=== PATIENT | female | born 1995 | race Caucasian/White ===

== ENCOUNTER 2018-10-22 13:41 | Emergency (ER) | payer SELFPAY ==
[~2018-10-22] VITALS: Ht 167.6 cm; Wt 124.7 kg
--- OUTSIDE RECORDS SUMMARY | 2018-10-22 13:43 | XMS REPORT | Clinical Summary ---
Author Author [facility] Address Unknown Phone Unavailable Care Team Providers Care Delicatessen Department Manager Name Role Phone Asked, No Pcp PCP Unavailable Allergies Comments Active Allergy Reactions Severity Noted Date Ibuprofen 10/17/2017 Morphine 10/17/2017 Medications End Date Status Medication Sig Dispensed Refills Start Date 10/28/2017 cefdinir (OMNICEF) 300 MG Take 1 20 capsule 0 capsule capsule (300 8 mg total) by mouth 2 (two) times a day for 10 days. 01/22/2018 meloxicam (MOBIC) 15 mg Take 0.5 20 tablet 0 tablet tablets (7.5 8 mg total) by mouth daily as needed for mild pain or moderate pain for up to 30 days. Active Problems Problem Noted Date Acute cystitis with hematuria 10/17/2017 Encounters Care Team Description Date Type Specialty Felipe Lucio MD Nonintractable episodic headache, unspecified headache type (Primary Dx); Dehydration 12/22/2017 Emergency Emergency Medicine - 12/23/2017 after 10/21/2017 Social History Date Tobacco Use Types Packs/Day Years Used Never Smoker Alcohol Use Drinks/Week oz/Week Comments Yes occassionally Sex Assigned at Date Recorded Not on file Industry Job Start Date Occupation Not on file Not on file Not on file Travel End Travel History Travel Start No recent travel history available. Last Filed Vital Signs Time Taken Vital Sign Reading 12/23/2017 3:04 AM CDT Blood Pressure 108/53 12/23/2017 3:04 AM CDT Pulse 78 12/23/2017 3:04 AM CDT Temperature 36.7 C (98.1 F) 12/23/2017 3:04 AM CDT Respiratory Rate 16 12/23/2017 3:04 AM CDT Oxygen Saturation 98% - Inhaled Oxygen - Concentration 12/22/2017 10:54 PM CDT Weight 107 kg (235 lb) 12/22/2017 10:54 PM CDT Height 167.6 cm (5' 6") 12/22/2017 10:54 PM CDT Body Mass Index 37.93 Plan of Treatment Health Maintenance Due Date Last Done Comments CHLAMYDIA SCREENING 2010 INFLUENZA VACCINE 11/11/2018 Procedures Comments Procedure Name Priority Date/Time Associated Diagnosis CT HEAD WO CONTRAST STAT 12/22/2017 11:39 PM CDT URINALYSIS SCREEN AND STAT 12/22/2017 MICROSCOPY, WITH REFLEX 11:23 PM CDT TO CULTURE URINE CULTURE STAT 12/22/2017 11:23 PM CDT GRAM STAIN STAT 12/22/2017 11:23 PM CDT THYROID STIMULATING STAT 12/22/2017 HORMONE 11:20 PM CDT ESTIMATED GFR STAT 12/22/2017 11:20 PM CDT HCG QUALITATIVE, SERUM STAT 12/22/2017 SCREEN 11:20 PM CDT COMPREHENSIVE METABOLIC STAT 12/22/2017 PANEL 11:20 PM CDT HC COMPLETE BLD COUNT STAT 12/22/2017 W/AUTO DIFF 11:20 PM CDT after 10/21/2017 Results * CT Head Wo Contrast (12/22/2017 11:39 PM CDT) Specimen Narrative Performed At EXAMINATION: CT HEAD WO CONTRAST HM [facility]IANT CLINICAL HISTORY: headache COMPARISON:None TECHNIQUE: Noncontrast enhanced images of the brain were obtained from the skull base to the vertex. Both soft tissue and bone reconstruction algorithms were performed. CT imaging was performed with iterative reconstruction technique and/or automated exposure control to reduce radiation dose. IMPRESSION: No intracranial hemorrhage, mass, mass effect, or herniation. No acute osseous abnormalities. Paranasal sinuses are clear. CONCLUSION: No acute intracranial abnormalities. [facility]-[id number] Procedure Note Hm Interface, Radiology Results Incoming - 12/22/2017 11:48 PM CDT EXAMINATION: CT HEAD WO CONTRAST CLINICAL HISTORY: headache COMPARISON: None TECHNIQUE: Noncontrast enhanced images of the brain were obtained from the skull base to the vertex. Both soft tissue and bone reconstruction algorithms were performed. CT imaging was performed with iterative reconstruction technique and/or automated exposure control to reduce radiation dose. IMPRESSION: No intracranial hemorrhage, mass, mass effect, or herniation. No acute osseous abnormalities. Paranasal sinuses are clear. CONCLUSION: No acute intracranial abnormalities. [facility]-[id number] Performing Organization Address City/[facility]/Zipcode Phone Number [address] [place] [address] * Urinalysis screen and microscopy, with reflex to culture (12/22/2017 11:23 PM CDT) Specimen site Clean catch [facility] DEPARTMENT OF PATHOLOGY AND GENOMIC MEDICINE Color, UA Yellow [facility] DEPARTMENT OF PATHOLOGY AND GENOMIC MEDICINE Appearance, UA Clear [facility] DEPARTMENT OF PATHOLOGY AND GENOMIC MEDICINE Specific 1.021 1.001 - 1.035 [facility] gravity, DEPARTMENT OF PATHOLOGY AND GENOMIC MEDICINE pH, UA 6.0 5.0 - 8.5 [facility] DEPARTMENT OF PATHOLOGY AND GENOMIC MEDICINE Protein, UA Negative Negative [facility] DEPARTMENT OF PATHOLOGY AND GENOMIC MEDICINE Glucose, UA Negative Negative [facility] DEPARTMENT OF PATHOLOGY AND GENOMIC MEDICINE Ketones, UA Negative Negative [facility] DEPARTMENT OF PATHOLOGY AND GENOMIC MEDICINE Bilirubin, UA Negative Negative [facility] DEPARTMENT OF PATHOLOGY AND GENOMIC MEDICINE Blood, UA Negative Negative [facility] DEPARTMENT OF PATHOLOGY AND GENOMIC MEDICINE Nitrite, UA Negative Negative [facility] DEPARTMENT OF PATHOLOGY AND GENOMIC MEDICINE Urobilinogen, Negative <2.0 [facility] DEPARTMENT OF PATHOLOGY AND GENOMIC MEDICINE Leukocyte Trace (A) Negative [facility] esterase, DEPARTMENT OF PATHOLOGY AND GENOMIC MEDICINE Epithelial Many /HPF [facility] cells, DEPARTMENT OF PATHOLOGY AND GENOMIC MEDICINE Round Few 0 - 1 /HPF [facility] epithelial DEPARTMENT OF cells, PATHOLOGY AND GENOMIC MEDICINE WBC, UA 0-5 0 - 4 /HPF [facility] DEPARTMENT OF PATHOLOGY AND GENOMIC MEDICINE RBC, UA 0-5 0 - 5 /HPF [facility] DEPARTMENT OF PATHOLOGY AND GENOMIC MEDICINE Bacteria, UA None seen None seen [facility] DEPARTMENT OF PATHOLOGY AND GENOMIC MEDICINE Yeast, UA None seen [facility] DEPARTMENT OF PATHOLOGY AND GENOMIC MEDICINE Yeast with None seen [facility] pseudohyphae, DEPARTMENT OF PATHOLOGY AND GENOMIC MEDICINE Specimen Urine Performing Organization Address City/[facility]/Zipcode Phone Number [address] [place] [address] PATHOLOGY AND GENOMIC MEDICINE * Gram stain (12/22/2017 11:23 PM CDT) Pathologist [facility] Gram stain No WBC's or organisms seen. [facility] result Comment: OF PATHOLOGY Specimen Information AND GENOMIC Specimen Source: Urine MEDICINE Specimen Site: Clean catch Specimen Urine Performing Organization Address City/State/Zipcode Phone Number [facility] DEPARTMENT OF [address] [place] [address] PATHOLOGY AND GENOMIC MEDICINE * Urine culture (12/22/2017 11:23 PM CDT) Pathologist [facility] Urine culture Streptococcus group B [facility] isolate 10-5 cfu/ml OF PATHOLOGY (A) AND GENOMIC Comment: MEDICINE Specimen Information Specimen Source: Urine Specimen Site: Clean catch Urine culture Mixed Gram negative rods [facility] isolate <10-1 cfu/ml OF PATHOLOGY (A) AND GENOMIC MEDICINE Urine culture Mixed Gram positive austyn [facility] isolate 10-1 cfu/ml OF PATHOLOGY (A) AND GENOMIC MEDICINE Specimen Urine Performing Organization Address City/[facility] Phone Number [facility] DEPARTMENT OF [address] [place] [phone] PATHOLOGY AND GENOMIC MEDICINE * Estimated GFR (12/22/2017 11:20 PM CDT) Pathologist [facility] Estimated GFR >=90 mL/min/1.73 m2 [facility] Comment: DEPARTMENT OF CatergoryUnitsInte PATHOLOGY AND rpretation GENOMIC G1 MEDICINE >=90 Normal or high G2 60-89Mildly decreased [id number] Mildly to moderately decreased [id number] Moderately to severely decreased G4 15-29Severely decreased G5 <15Kidney failure The eGFR was calculated using the Chronic Kidney Disease Epidemiology Collaboration (CKD-EPI) equation. Interpretation is based on recommendations of the National Kidney Foundation-Kidney Disease Outcomes Quality Initiative (NKF-KDOQI) published in 2014. Specimen Plasma specimen Performing Organization Address City/State/Zipcode Phone Number [facility] [place] [id number] [place] [address] [place] [address] PATHOLOGY AND GENOMIC MEDICINE * CBC with platelet and differential (12/22/2017 11:20 PM CDT) Pathologist [facility] WBC 7.95 4.50 - 11.00 k/uL [facility] DEPARTMENT OF PATHOLOGY AND GENOMIC MEDICINE RBC 4.26 4.20 - 5.50 m/uL [facility] DEPARTMENT OF PATHOLOGY AND GENOMIC MEDICINE HGB 12.7 12.0 - 16.0 g/dL [facility] DEPARTMENT OF PATHOLOGY AND GENOMIC MEDICINE HCT 37.2 37.0 - 47.0 % [facility] DEPARTMENT OF PATHOLOGY AND GENOMIC MEDICINE MCV 87.3 82.0 - 100.0 fL [facility] DEPARTMENT OF PATHOLOGY AND GENOMIC MEDICINE MCH 29.8 27.0 - 34.0 pg [facility] DEPARTMENT OF PATHOLOGY AND GENOMIC MEDICINE MCHC 34.1 31.0 - 37.0 g/dL [facility] DEPARTMENT OF PATHOLOGY AND GENOMIC MEDICINE RDW - SD 39.8 37.0 - 55.0 fL [facility] DEPARTMENT OF PATHOLOGY AND GENOMIC MEDICINE MPV 10.9 8.8 - 13.2 fL [facility] DEPARTMENT OF PATHOLOGY AND GENOMIC MEDICINE Platelet count 217 150 - 400 k/uL [facility] DEPARTMENT OF PATHOLOGY AND GENOMIC MEDICINE Nucleated RBC 0.00 /100 WBC [facility] DEPARTMENT OF PATHOLOGY AND GENOMIC MEDICINE Neutrophils 56.0 39.0 - 69.0 % [facility] DEPARTMENT OF PATHOLOGY AND GENOMIC MEDICINE Lymphocytes 34.5 25.0 - 45.0 % [facility] DEPARTMENT OF PATHOLOGY AND GENOMIC MEDICINE Monocytes 7.3 0.0 - 10.0 % [facility] DEPARTMENT OF PATHOLOGY AND GENOMIC MEDICINE Eosinophils 1.4 0.0 - 5.0 % [facility] DEPARTMENT OF PATHOLOGY AND GENOMIC MEDICINE Basophils 0.5 0.0 - 1.0 % [facility] DEPARTMENT OF PATHOLOGY AND GENOMIC MEDICINE Specimen Blood Performing Organization Address [facility] Phone Number [address] [place] [address] PATHOLOGY [facility] * hCG qualitative, serum screen (12/22/2017 11:20 PM CDT) Pathologist [facility] hCG Negative [facility] qualitative, DEPARTMENT OF serum PATHOLOGY AND GENOMIC MEDICINE Specimen Blood Performing Organization Address [facility] Phone Number [address] [place] [address] PATHOLOGY [facility] * Thyroid stimulating hormone (12/22/2017 11:20 PM CDT) Pathologist [facility] TSH 2.16 0.27 - 4.20 uIU/mL [facility] DEPARTMENT OF PATHOLOGY AND GENOMIC MEDICINE Specimen Plasma specimen Performing Organization Address [facility] Phone Number [address] [place] [address] PATHOLOGY [facility] * Comprehensive metabolic panel (12/22/2017 11:20 PM CDT) Sodium 140 135 - 148 mEq/L [facility] DEPARTMENT OF PATHOLOGY AND GENOMIC MEDICINE Potassium 3.7 3.5 - 5.0 mEq/L [facility] DEPARTMENT OF PATHOLOGY AND GENOMIC MEDICINE Chloride 102 98 - 112 mEq/L [facility] DEPARTMENT OF PATHOLOGY AND GENOMIC MEDICINE CO2 27 24 - 31 mEq/L [facility] DEPARTMENT OF PATHOLOGY AND GENOMIC MEDICINE Anion gap 11@ANIO 7 - 15 mEq/L [facility] DEPARTMENT OF PATHOLOGY AND GENOMIC MEDICINE BUN 10 6 - 20 mg/dL [facility] DEPARTMENT OF PATHOLOGY AND GENOMIC MEDICINE Creatinine 0.80 0.50 - 0.90 mg/dL [facility] DEPARTMENT OF PATHOLOGY AND GENOMIC MEDICINE Glucose 105 (H) 65 - 99 mg/dL [facility] DEPARTMENT OF PATHOLOGY AND GENOMIC MEDICINE Calcium 9.1 8.3 - 10.2 mg/dL [facility] DEPARTMENT OF PATHOLOGY AND GENOMIC MEDICINE Protein 7.3 6.3 - 8.3 g/dL [facility] Comment: DEPARTMENT OF PATHOLOGY AND 4.6-7.0 g/dL [address] week 4.4-7.6 g/dL 7 months-1year 5.1-7.3 g/dL 1-2 years5.6-7 .5 g/dL >3 years6.0-8 .0 g/dL 18-150 6.3-8.3 g/dL Albumin 4.3 3.5 - 5.0 g/dL [facility] DEPARTMENT OF PATHOLOGY AND GENOMIC MEDICINE A/G ratio 1.4 0.7 - 3.8 [facility] DEPARTMENT OF PATHOLOGY AND GENOMIC MEDICINE Alkaline 79 35 - 104 U/L [facility] phosphatase DEPARTMENT OF PATHOLOGY AND GENOMIC MEDICINE AST 20 10 - 35 U/L [facility] DEPARTMENT OF PATHOLOGY AND GENOMIC MEDICINE ALT 30 5 - 50 U/L [facility] DEPARTMENT OF PATHOLOGY AND GENOMIC MEDICINE Total bilirubin 0.2 0.0 - 1.2 mg/dL [facility] DEPARTMENT OF PATHOLOGY AND GENOMIC MEDICINE Specimen Plasma specimen Performing Organization Address City/State/Zipcode Phone Number [facility] [address] [address] [place] [address] PATHOLOGY AND GENOMIC MEDICINE after 10/21/2017 Advance Directives Patient has advance care planning documents on file. For more information, latia buchanan contact: Shorty Hannah [address] [place] [address]
--- OUTSIDE RECORDS SUMMARY | 2018-10-22 13:44 | XMS REPORT | Clinical Summary ---
Author Author JUAN LUIS [facility] Address Unknown Phone Unavailable Care Team Providers Care Senior Planning Manager Name Role Phone Pcp, No PCP Unavailable Allergies Comments Active Allergy Reactions Severity Noted Date Morphine Rash Low 11/09/2017 Medications End Date Status Medication Sig Dispensed Refills Start Date Active acetaminophen-codeine Take 1 tablet 12 tablet 0 (TYLENOL #3) 300-30 mg by mouth 8 per tablet every 6 (six) hours as needed for Pain. Max Daily Amount: 4 tablets Active ibuprofen (ADVIL,MOTRIN) Take 600 mg 0 200 MG tablet by mouth every 6 (six) hours as needed for Pain. 11/16/2017 cephalexin (KEFLEX) 500 Take 1 21 capsule 0 11/09/201 MG capsule capsule (500 8 mg total) by mouth 3 (three) times daily for 7 days. Active Problems Not on file Encounters Care Team Description Date Type Specialty Jose Mcmullen MD Acute facial pain (Primary Dx); Dental caries 11/09/2017 Emergency Emergency Medicine after 10/21/2017 Social History Date Tobacco Use Types Packs/Day Years Used Never Smoker Smokeless Tobacco: Never Used Alcohol Use Drinks/Week oz/Week Comments Yes Sex Assigned at Date Recorded Not on file Industry Job Start Date Occupation Not on file Not on file Not on file Travel End Travel History Travel Start No recent travel history available. Last Filed Vital Signs Time Taken Vital Sign Reading 11/09/2017 6:06 PM CDT Blood Pressure 129/71 11/09/2017 6:06 PM CDT Pulse 98 11/09/2017 6:06 PM CDT Temperature 36.6 C (97.9 F) 11/09/2017 6:06 PM CDT Respiratory Rate 18 11/09/2017 6:06 PM CDT Oxygen Saturation 96% - Inhaled Oxygen - Concentration 11/09/2017 6:06 PM CDT Weight 138.3 kg (305 lb) 11/09/2017 6:06 PM CDT Height 167.6 cm (5' 6") 11/09/2017 6:06 PM CDT Body Mass Index 49.23 Plan of Treatment Not on file Results Not on fileafter 10/21/2017
--- OUTSIDE RECORDS SUMMARY | 2018-10-22 13:44 | XMS REPORT ---
Author Author [facility] Address Unknown Phone Unavailable Care Team Providers Care Roof Painter Name Role Phone Unavailable Unavailable Payers Payer Name Policy Type Policy Number Effective Date Expiration Date Problems This patient has no known problems. Allergies, Adverse Reactions, Alerts Allergy Name Allergy Type Status Severity Reaction(s) Onset Date Inactive Date Treating Clinician Comments morphine DA Active [place] 2017-07-03 00:00:00 ibuprofen DA Active [place] 2017-07-03 00:00:00 Medications This patient has no known medications. Results Test Description Test Time Test Comments Text Results Atomic Results Result Comments - US TRANSVAGINAL NON OB 2018-09-29 17:41:00 Name: MONALISA WILLOUGHBY [facility] : 1995 Age/S: 23 / F [address] [place] [address] Blvd Unit #: [id number] Loc: [place] [address] Phys: Luis Alfredo Ryan MD Acct: [id number] Dis Date: Status: REG ER PHONE #: [phone] Exam Date: 09/29/2018 1725 FAX #: [phone] Reason: PAIN EXAMS: CPT CODE: [id number] [place] [address] PROCEDURE: PELVIC ULTRASOUND INDICATION: Pelvic pain COMPARISON: 07/03/2017 TECHNIQUE: Grayscale, color and Doppler transabdominal and transvaginal imaging of the pelvis was performed with standard technique. Transvaginal ultrasound is obtained for further evaluation of the endometrium and adnexal regions. FINDINGS: UTERUS: Uterus measures 8.1 x 3.9 x 5.5 cm. No focal uterine mass. Thickened endometrium measuring 2.3 cm. RIGHT OVARY: 29 x 31 x 26 mm. Normal blood flow on Doppler. LEFT OVARY: 34 x 28 x 26 mm. Normal blood flow on Doppler. BLADDER: Unremarkable. Comments: No adnexal masses. No free intraperitoneal fluid. IMPRESSION: Thickened endometrium SL: [id number] Electronic ally Signed by Ace Bang on 09/29/2018 at 1741 Reported and signed by: Shane Bang M.D. CC: Luis Alfredo Ryan MD Technologist: Herbie Esposito RDMS (AB) (OB) Trnscb Date/Time: 09/29/2018 (1740) [email or web address] Orig Print D/T: S: 09/29/2018 (4065) Probe: [id number] PAGE 1 Signed Report - US PELVIS COMPLETE 2018-09-29 17:41:00 Name: MONALISA WILLOUGHBY [facility] : 1995 Age/S: 23 / F [address] [place] [address] Unit #: [id number] Loc: [place] [address] Phys: Luis Alfredo Ryan MD Acct: [id number] Dis Date: Status: REG ER PHONE #: [phone] Exam Date: 09/29/2018 1725 FAX #: [phone] Reason: Pelvic Pain EXAMS: CPT CODE: [id number] US PELVIS COMPLETE [id number] PROCEDURE: PELVIC ULTRASOUND INDICATION: Pelvic pain COMPARISON: 07/03/2017 TECHNIQUE: Grayscale, color and Doppler transabdominal and transvaginal imaging of the pelvis was performed with standard technique. Transvaginal ultrasound is obtained for further evaluation of the endometrium and adnexal regions. FINDINGS: UTERUS: Uterus measures 8.1 x 3.9 x 5.5 cm. No focal uterine mass. Thickened endometrium measuring 2.3 cm. RIGHT OVARY: 29 x 31 x 26 mm. Normal blood flow on Doppler. LEFT OVARY: 34 x 28 x 26 mm. Normal blood flow on Doppler. BLADDER: Unremarkable. Comments: No adnexal masses. No free intraperitoneal fluid. IMPRESSION: Thickened endometrium SL: [id number] at 1741 Reported and signed by: Shane Bang M.D. CC: Luis Alfredo Ryan MD Technologist: Herbie Esposito RDMS () (OB) Trnscb Date/Time: 09/29/2018 (174) SdETG Orig Print D/T: S: 09/29/2018 (1514) Probe: PAGE 1 Signed Report HCG SERUM QUAL 2018-09-29 16:16:00 HCG SERUM QUAL (test code=HCGQL) SERUM NEGATIVE NEGATIVE URINALYSIS [id number] 16:12:00* Test Item Value Reference Range Comments UA COLOR (test code=COLU) YELLOW YEL/STRAW UA APPEARANCE (test code=APPU) CLEAR CLEAR UA GLUCOSE DIPSTICK (test code=DGLUU) NEGATIVE NEGATIVE UA BILIRUBIN DIPSTICK (test code=BILU) NEGATIVE NEGATIVE UA KETONE DIPSTICK (test code=KETU) NEGATIVE NEGATIVE UA SPECIFIC GRAVITY (test code=SGU) 1.019 1.005-1.030 UA BLOOD DIPSTICK (test code=VANDANA) 2+ NEGATIVE UA PH DIPSTICK (test code=AUDRA) 6.0 5.0-7.0 UA PROTEIN DIPSTICK (test code=PROU) NEGATIVE NEGATIVE UA UROBILINIOGEN DIPSTICK (test code=URO) 0.2 mg/dL 0.2-1.0 UA NITRITE DIPSTICK (test code=BRIE) NEGATIVE NEGATIVE UA LEUKOCYTE ESTERASE DIPSTICK (test code=LEUU) 1+ NEGATIVE UA WBC (test code=WBCU) 10-20 WBC/HPF 0-3 UA RBC (test code=RBCU) 0-3 RBC/HPF 0-3 UA BACTERIA (test code=BACU) NONE SEEN /HPF NONE SEEN UA SQUAMOUS CELLS (test code=SQU) 11-25 /HPF NONE SEEN UA MUCUS (test code=MUCU) TRACE /LPF NONE SEEN COMMENTS: Clean CatchCBC W/AUTO [id number] 16:05:00* Test Item Value Reference Range Comments WHITE BLOOD CELL (test code=WBC) 7.73 x10 3/uL 4.5-11.0 RED BLOOD CELL (test code=RBC) 4.41 x10 6/uL 3.54-5.02 HEMOGLOBIN (test code=HGB) 13.1 g/dL 11.0-15.0 HEMATOCRIT (test code=HCT) 38.6 % 33.0-45.0 MEAN CELL VOLUME (test code=MCV) 87.5 fL 81.0-99.0 MEAN CELL HGB (test code=MCH) 29.7 pg 27.0-33.0 MEAN CELL HGB CONCETRATION (test code=MCHC) 33.9 g/dL 33.0-37.0 RED CELL DISTRIBUTION WIDTH CV (test code=RDW) 12.4 % 11.5-14.5 RED CELL DISTRIBUTION WIDTH SD (test code=RDW-SD) 39.8 fL 37.0-54.0 PLATELET COUNT (test code=PLT) 231 x10 3/uL 150-400 MEAN PLATELET VOLUME (test code=MPV) 10.6 fL 7.0-9.0 NEUTROPHIL % (test code=NT%) 61.6 % 56.0-77.0 IMMATURE GRANULOCYTE % (test code=IG%) 0.5 % 0.0-2.0 LYMPHOCYTE % (test code=LY%) 29.8 % 14.0-32.0 MONOCYTE % (test code=MO%) 6.5 % 4.8-9.0 EOSINOPHIL % (test code=EO%) 1.2 % 0.3-3.7 BASOPHIL % (test code=BA%) 0.4 % 0.0-2.0 NUCLEATED RBC % (test code=NRBC%) 0.0 % 0-0 NEUTROPHIL # (test code=NT#) 4.77 x10 3/uL 2.0-7.6 IMMATURE GRANULOCYTE # (test code=IG#) 0.04 x10 3/uL 0.00-0.03 LYMPHOCYTE # (test code=LY#) 2.30 x10 3/uL 1.0-3.8 MONOCYTE # (test code=MO#) 0.50 x10 3/uL 0.1-0.8 EOSINOPHIL # (test code=EO#) 0.09 x10 3/uL 0.0-0.2 BASOPHIL # (test code=BA#) 0.03 x10 3/uL 0.0-0.2 NUCLEATED RBC # (test code=NRBC#) 0.00 x10 3/uL 0.0-0.1 MANUAL DIFF REQUIRED (test code=MDIFF) NO CHEMISTRY 8 [id number] 15:59:00* Test Item Value Reference Range Comments ISTAT-SODIUM (test code=NAP) MMOL/L 134-147 ISTAT-POTASSIUM (test code=KP) MMOL/L 3.4-5.0 ISTAT-CHLORIDE (test code=CLP) MMOL/L 100-108 ISTAT CARBON DIOXIDE (test code=ISTAT-CO2) mmol/L 21-33 ISTAT CALCIUM IONIZED (test code=ISTAT-STEPHANIE) MG/DL 1.12-1.32 ISTAT-GLUCOSE (test code=GLUP) MG/DL 70-110 ISTAT-BUN (test code=BUNP) MG/DL 7-18 BEDSIDE CREATININE (test code=CREATBED) MG/DL 0.6-1.3 GLOMERULAR FILTRATION RATE POC (test code=GFRBED) 131 ML/MIN CHEMISTRY 8 [id number] 15:59:00* Test Item Value Reference Range Comments ISTAT-SODIUM (test code=NAP) 140 MMOL/L 134-147 ISTAT-POTASSIUM (test code=KP) 3.7 MMOL/L 3.4-5.0 ISTAT-CHLORIDE (test code=CLP) 103 MMOL/L 100-108 Performed by certified liquor gallery operator at [facility] ISTAT CARBON DIOXIDE (test code=ISTAT-CO2) 27.0 mmol/L 21-33 ISTAT CALCIUM IONIZED (test code=ISTAT-STEPHANIE) 1.23 MG/DL 1.12-1.32 ISTAT-GLUCOSE (test code=GLUP) 83 MG/DL 70-110 ISTAT-BUN (test code=BUNP) 10 MG/DL 7-18 BEDSIDE CREATININE (test code=CREATBED) 0.6 MG/DL 0.6-1.3 GLOMERULAR FILTRATION RATE POC (test code=GFRBED) 131 ML/MIN
[2018-10-22] MEDS ORDERED: SODIUM CHLORIDE 0.9% 1000ML 1,000 ML IV STA (15:16)
[2018-10-22 15:34] LABS: BASOPHILS % 0.4 % (0.0-1.0); EOSINOPHILS # (AUTO) 0.1 (0.0-0.4); EOSINOPHILS % 1.5 % (0.0-6.0); HEMOGLOBIN 12.3 g/dL (12.0-16.0); LYMPHOCYTES # (AUTO) 1.9 (1.0-3.2); LYMPHOCYTES % 26.9 % (18.0-39.1); MEAN CORPUSCULAR HEMOGLOBIN 29.5 pg (28-32); MEAN CORPUSCULAR HGB CONC 34.2 g/dL (31-35); MEAN CORPUSCULAR VOLUME 86.3 fL (81-99); MONOCYTES # (AUTO) 0.5 (0.2-0.8); MONOCYTES % 7.4 % (4.4-11.3); NEUTROPHILS # (AUTO) 4.5 (2.1-6.9); NEUTROPHILS % 63.5 % (38.7-80.0); PLATELET COUNT 211 x10e3/uL (140-360); RED BLOOD COUNT 4.17 x10e6/uL (3.6-5.1); RED CELL DISTRIBUTION WIDTH 12.3 % (11.7-14.4)
[2018-10-22 15:51] LABS: ALANINE AMINOTRANSFERASE 31 IU/L (0-55); ALBUMIN 3.8 g/dL (3.5-5.0); ALBUMIN/GLOBULIN RATIO 1.2 (0.8-2.0); ALKALINE PHOSPHATASE 61 IU/L (40-150); ANION GAP 11.7 mmol/L (8-16); BLOOD UREA NITROGEN 13 mg/dL (7-26); BUN/CREATININE RATIO 18 (6-25); CALCIUM 9.1 mg/dL (8.4-10.2); CARBON DIOXIDE 26 mmol/L (22-29); CHLORIDE 108 mmol/L (98-107); CREATININE, SERUM 0.72 mg/dL (0.57-1.11); EST GLOMERULAR FILTRATION RATE > 60 ML/MIN (60-); GLUCOSE 98 mg/dL (74-118); POTASSIUM 3.7 mmol/L (3.5-5.1); SODIUM 142 mmol/L (136-145)
[2018-10-22 16:33] LABS: INR 0.9; PROTHROMBIN TIME 12.6 seconds (11.9-14.5)
--- NOTE | 2018-10-22 16:34 | Diagnostic Imaging Report ---
Exam: Pelvic ultrasound. History: Heavy vaginal bleeding, clots. Comparison: None. Findings: Transabdominal and endovaginal sonographic evaluation of the pelvis. The uterus measures 8.7 x 3.7 x 5.8 cm. The endometrial stripe is thickened, measuring up to 2.2 cm. No associated hyperemia. There is a nonspecific 0.4 cm rounded anechoic structure within the endometrium. Nabothian cysts are noted. The right ovary measures 3.3 x 2.2 x 2.2 cm and the left ovary measures 2.4 x 2.5 x 2.7 cm. Doppler flow is demonstrated. No free fluid. Impression: Thickened endometrial stripe measuring up to 2.2 cm. Follow-up ultrasound is recommended in 6 weeks to assess for resolution of endometrial thickening. Nonspecific 0.4 cm cystic structure within the endometrium. Suggest correlation with beta-hCG and follow-up ultrasound. If the beta-HCG is positive, then this could represent a gestational sac. If the beta-HCG is negative, then could represent an endometrial cyst. Signed by: Dr. Oscar Mccloud MD on 10/22/2018 4:30 PM
[2018-10-22] MEDS ORDERED: HYDROCODONE/APAP 5MG-325MG TAB PO ONE (16:40)
[2018-10-22] MEDS ORDERED: HYDROCODONE/APAP 5MG-325MG TAB ONE (16:50)
[2018-10-22 17:15] LABS: BILIRUBIN,URINE NEGATIVE (NEGATIVE); CLARITY,URINE CLOUDY (CLEAR); COLOR,URINE RED (YELLOW); KETONES,URINE TRACE (NEGATIVE); LEUKOCYTE ESTERASE ,URINE TRACE (NEGATIVE); NITRITE,URINE POSITIVE (NEGATIVE); PROTEIN,URINE DIPSTICK 2+ (NEGATIVE); URINE UROBILINOGEN 1 mg/dL (0.2 - 1)
[2018-10-22 17:26] LABS: BACTERIA,URINE MODERATE /HPF; WBC,URINE (MAN) 0-5 /HPF (0-5)
== END 2018-10-22 17:45 | disposition home or self-care (01) ==
LOC: ER 13:41
DX: N93.8 Other specified abnormal uterine and vaginal bleeding (principal)
CPT/HCPCS: 36415; 76830; 80053; 81001; 84702; 85025; 85610; 85730; 99284; J7030